=== PATIENT | female | born 1975 | race Caucasian/White ===

== ENCOUNTER 2019-05-11 09:54 | Emergency (ER) | payer OTHER ==
[~2019-05-11] VITALS: Ht 167.6 cm; Wt 72.0 kg
[2019-05-11 09:57] VITALS: BP 116/72; PULSE 98; RESP 16; Ht 167.6 cm; Wt 72.0 kg
--- NOTE | 2019-05-11 10:24 | ERD ---
ER Documentation Chief Complaint Chief Complaint pt is bib self with c/o sore throat, dry mouth, chest wall pain with inspir HPI Patient is a 43 years old female with past medical history of hypertension presenting to the clinic for mild sore throat, cough, chest wall pain with inspiration only, fever, chills X 1 week. Patient admits to taking nbnx-qcs-nemdxst DayQuil and NyQuil without resolution of symptoms. Patient reports sore throat was worse the first 3 days but has improved since then. Patient denies any sputum production, throat swelling, abdominal pain. ROS All systems reviewed and are negative except as per history of present illness. Medications Home Meds Active Scripts Ibuprofen* (Motrin*) 800 Mg Tab, 800 MG PO Q6H PRN for PAIN AND OR ELEVATED TEMP, #30 TAB Prov:REBECCA KEEN PA-C 05/11/19 Methylprednisolone* (Medrol* DOSE PACK) 4 Mg/Dose-Pack Tab.ds.pk, 4 MG PO . DIRECTED for 5 Days, PACKET Prov:REBECCA KEEN PA-C 05/11/19 Zlzvgkiqlfg-L-Adxjeguadu Hb* (Guaifenesin* DM Syrup) 120 Ml Syrup, 10 ML PO Q4H PRN for COUGH for 7 Days, ML Prov:REBECCA KEEN PA-C 05/11/19 Allergies Allergies: Coded Allergies: No Known Allergy (Unverified , 05/11/19) PMhx/Soc Medical and Surgical Hx: pt denies Medical Hx, pt denies Surgical Hx Hx Alcohol Use: No Hx Substance Use: No Hx Tobacco Use: No Smoking Status: Never smoker Physical Exam Vitals Vital Signs Date Temp Pulse Resp B/P (MAP) Pulse Ox O2 O2 Flow FiO2 Time Delivery Rate 05/11/19 98.3 98 16 116/72 98 09:57 (87) Physical Exam Const: No acute distress Head: Atraumatic Eyes: Normal Conjunctiva ENT: Normal External Ears, Nose and Mouth. Mild oropharyngeal erythema without lesions, exudate, swelling. Neck: Full range of motion. No meningismus. Resp: Clear to auscultation bilaterally. No rales, proximal rhonchi, wheezing. Cardio: Regular rate and rhythm, no murmurs Neur: Awake and alert Psych: Normal Mood and Affect Results 24 hrs Laboratory Tests Test 7/12/19 10:24 POC Beta HCG, Qualitative NEGATIVE Current Medications Medications Dose Sig/Anusha Start Time Status Last (Trade) Ordered Route PRN Stop Time Admin Dose Reason Admin 125 mg ONCE ONCE 05/11/19 DC 05/11/19 Methylprednis IM 10:30 10:20 olone Sodium 05/11/19 10:31 Succinate (Solu-Medrol) Ibuprofen 800 mg ONCE ONCE 05/11/19 DC 05/11/19 (Motrin) PO 10:30 10:20 05/11/19 10:31 Procedures/MDM Patient was seen and evaluated for sore throat, chest wall pain with inspiration, cough. Patient's clinical presentation most likely represents acute bronchitis episode without complication. Patient was given Solu-Medrol 125 IM and ibuprofen 800 mg with significant improvement of symptoms. Low suspicion for pneumonia and sepsis due to an unremarkable physical exam. Patient is stable ready for discharge. Follow-up with PCP. Patient will be dis charged with Medrol Dosepak, guaifenesin, and ibuprofen. Departure Diagnosis: Primary Impression: Bronchitis Condition: Stable Patient Instructions: Acute Bronchitis, Chest Wall Pain, Costochondritis Referrals: [facility] Additional Instructions: Patient advised to return to the ED immediately for new or worsening symptoms. Patient advised to follow up with primary care provider in the next 24-48 hours. Patient verbalized understanding and agrees with treatment plan and course of action. If patient has no primary care they may follow up with [facility] [address] [place] [id number] or [facility] [address] [place] [address] or [facility] [address] [place] [address] REBECCA KEEN PA-C May 11, 2019 10:24
[2019-05-11] MEDS ORDERED: IBUP800T48 PO (10:26)
[2019-05-11] MEDS ORDERED: GUAI120S25 PO (10:26)
[2019-05-11] MEDS ORDERED: MED4DP PO (10:26)
[2019-05-11] MEDS ORDERED: IBUPROFEN 800 MG TAB PO ONE (10:30)
[2019-05-11] MEDS ORDERED: METHYLPREDNISOLONE 125 MG INJ IM ONE (10:30)
== END 2019-05-11 11:05 | disposition home or self-care (01) ==
LOC: FTE 09:54
DX: J40 Bronchitis, not specified as acute or chronic (principal)
CPT/HCPCS: 81025; 96372; 99284; J2930